=== PATIENT | male | born 1955 | race Caucasian/White ===

== ENCOUNTER 2017-10-19 15:20 | Inpatient (IN) | payer OTHER ==
[2017-10-19 15:57] LABS: Hemoglobin 16.2 g/dL (14.0-18.0); Mean Corpuscular Hemoglobin 31.3 pg (27.0-31.0); Mean Corpuscular Volume 91.8 fL (78.0-98.0); Mean Platelet Volume 7.4 fL (7.4-10.4); Platelet Count 197 thou/uL (130-400); RBC Distribution Width 12.4 % (11.5-14.5); Red Blood Cell (RBC) Count 5.19 mill/uL (4.70-6.10); White Blood Cell (WBC) Count 5.7 thou/uL (4.8-10.8)
[2017-10-19 16:05] LABS: Bilirubin Small (Negative); Blood, Urine Moderate (Negative); Clarity CLOUDY (Clear); Glucose, Urine (Dipstick) Negative (Negative); Leukocyte Negative (Negative); Nitrite Negative (Negative); Protein, Urine (Dipstick) 100 mg/dL (Neg-Trace); Specific Gravity, Urine 1.029 (1.002-1.036)
[2017-10-19 16:07] LABS: Bacteria/HPF None Seen HPF (None Seen)
[2017-10-19 16:08] LABS: Pathc Cast-AUWi Flag 3.92 (0-2.49); Yeast-AUWi Flag 86.7 (0-25.0)
[2017-10-19 16:17] LABS: ALT (SGPT) 18 U/L (8-55); AST (SGOT) 60 U/L (5-34); Albumin 3.9 g/dL (3.4-4.8); Alkaline Phosphatase 101 U/L (40-150); Anion Gap 14 mmol/L (10-20); BUN (Urea Nitrogen) 22 mg/dL (8.4-25.7); Bilirubin, Total 1.1 mg/dL (0.2-1.2); Calc. Creatinine Clearance 0 mL/min (70-130); Carbon Dioxide 22 mmol/L (23-31); Chloride 102 mmol/L (98-107); Estimated GFR-MDRD 65; Globulin 3.5 g/dL (2.4-3.5); Glucose 105 mg/dL (80-115); Potassium 3.7 mmol/L (3.5-5.1); Protein, Total 7.4 g/dL (5.8-8.1); Sodium 134 mmol/L (136-145)
[2017-10-19 16:21] LABS: Crystals/HPF 1+ AMORPH URATES HPF (Negative)
[2017-10-19 16:22] LABS: Hyaline Casts/LPF 0-3 HYALINE CAST LPF (0-3 Hyaline); Yeast-All Forms None Seen HPF (None Seen)
[2017-10-19 16:36] LABS: Band 24 % (5-11); Eosinophils 1 % (0-10); Lymphocytes 10 % (21-51); MDiff Complete? YES; Monocytes 10 % (0-10); Neutrophil 55 % (42-75); PLT Morphology Comment Appears Adequate; RBC Morphology Normal
[2017-10-19] MEDS ORDERED: Levofloxacin 500 mg/D5W 100 ml Premix Bag ONE (16:38)
--- NOTE | 2017-10-19 17:01 | RAD ---
CHEST ONE VIEW 10/19/17 HISTORY: Urinary tract infection, fever, chills and aching. COMPARISON: Radiograph chest 2009. FINDINGS: there is a peripheral left lower lobe air space opacity. Remainder of the lungs are clear. No pneumot horax. IMPRESSION: Left upper lobe peripheral air space opacity concerning for infection. Recommend followup after treat ment to document resolution. POS: [facility]
[2017-10-19] MEDS ORDERED: Cefepime 2 GM VIAL ONE (17:07)
[2017-10-19] MEDS ORDERED: Acetaminophen 325 MG TAB ONE (17:07)
[2017-10-19] MEDS ORDERED: Sodium Chloride 0.9% 100 ML ONE (17:07)
[2017-10-19] MEDS ORDERED: Ibuprofen 800 MG TAB PO PRN (18:30)
[2017-10-19] MEDS ORDERED: Acetaminophen 650 MG/20.3 ML UDCUP PO PRN (18:30)
--- NOTE | 2017-10-19 19:43 | RAD ---
CHEST ONE VIEW: 10/19/17 HISTORY: Lateral image. Fever and chills. COMPARISON: Radiograph same day. FINDINGS: Similar appearance to the left upper lobe air space opacity. IMPRESSION: Similar appearance left upper lobe air space opacity concerning for infection. Follow up recommended . POS: HOME
[2017-10-19] MEDS: cefTRIAXone\\ROCEPHIN 2 GM in Sodium Chloride 0.9% 100 ML IVPB SCH (20:12)
[2017-10-19] MEDS: Sodium Chloride 0.9% 1,000 ML IV SCH (20:15)
[2017-10-19 21:15] VITALS: BMI 31.4
[2017-10-19] MEDS: Albuterol Sulfate 1.25 MG/3 ML NEB NEB SCH (21:55)
--- NOTE | 2017-10-19 21:56 | CON ---
DATE OF CONSULTATION: 10/19/2017 PRIMARY CARE PHYSICIAN: Dr. Charbel Rider. HISTORY OF PRESENT ILLNESS: Mr. Price is a pleasant 62-year-old male well known to me with history of prostate cancer, pathologic T2c, Harris score 3+3, status post robotic-assisted radical prostatectomy in 08/2009. He has had no cancer recurrence. I recently saw Mr. Price for a routine followup visit on with no significant postvoid residual. He has had no significant post- prostatectomy incontinence, minimal impotence. There is no prior history of UTI or gross hematuria of concern. He continues to deny obstructive urinary symptoms. Since Tuesday, he has had fever, generalized malaise, upper neck pain of unclear etiology. He denies gross hematuria, dysuria, sensation of incomplete void. However, does relate that he has had urinary frequency with fluid consumption and this is his only urologic complaint. He presented to an outside emergency room [facility] on Tuesday. He had a CT of the abdomen and pelvis with IV contrast demonstrating no significant pathology of concern. No hydronephrosis. No kidney or ureteral stone. He was provided Ceftin for presumed UTI as urine dip demonstrated blood, however, nitrite and leukocyte negative, positive bilirubin and ketones. Culture was not obtained. His called our office today as there was a history of 104 fever. He took Tylenol earlier today and I encouraged the patient regarding emergency room assessment due to high fever of unknown origin. Temperature in the ER is 100.4 , otherwise vital signs are stable. He is resting with his at bedside. PAST MEDICAL HISTORY: Gout, arthritis, hyperlipidemia, rheumatic fever, prostate cancer, pathologic T2c and hemorrhoids. PAST SURGICAL HISTORY: Robotic-assisted radical prostatectomy in 01/2010. ALLERGIES: No known drug allergies. HOME MEDICATIONS: Include Cialis, naproxen p.r.n., Zyrtec. PHYSICAL EXAMINATION: VITAL SIGNS: Stable at 100.4, 96, 18, 114/75, 97% on room air. GENERAL: Patient does appear to be fatigued, facial flushing noted consistent with history of high fever. HEENT: Grossly unremarkable. HEART: Regular rate. LUNGS: Clear. ABDOMEN: Soft, no suprapubic tenderness. No CVA tenderness appreciated. GENITOURINARY: Circumcised phallus, meatus is grossly unremarkable. Testes are descended with no evidence of intratesticular mass or tenderness. EXTREMITIES: No cyanosis, clubbing or edema. Patient's genital area was formally prepped and draped in a 16 Indonesian catheter was passed without any resistance with no significant postvoid residual. Concentrated yellow urine return. PERTINENT LABS: Finalized a white count of 5, hemoglobin 16, platelet 197. His labs in [facility] a few days ago was grossly unremarkable. CT in [facility] dated Tuesday10/17/2017 with no evidence of acute pathology. Normal tract. Pertinent previous labs, PSA wolfgang in 08/2017, creatinine 1.2. CT in 06/2016 no evidence of abnormality. IMPRESSION/PLAN: 1. Mr. Price is a 62-year-old male well known to me for pathologic T2c, Sergo score 3+3, status post robotic prostatectomy 01/2010 with no evidence of cancer recurrence. Patient presents to the emergency room with high fever of 104 of unclear etiology. 2. Questionable urinary tract infection, UA is nonspecific. Recheck UA C&S is pending. I was able to pass a 16-Indonesian Stark catheter without significant issues with no significant postvoid residual of concern, thereby ruling out bladder neck contracture. I will leave an indwelling Stark catheter for now, as the patient will require aggressive IV fluids. Pending workup. Anticipate Stark catheter removal per my discretion in the next day or two. Medical admission warranted to work up fever of unknown origin. Recommend quinolones. Consideration for meropenem. I do not recommend cephalosporins as he has been on this with previous ER with no improvement of his fever.admission. [facility]
--- NOTE | 2017-10-20 00:36 | HP ---
DATE OF ADMISSION: 10/19/2017 HISTORY OF PRESENT ILLNESS: This is a 62-year-old white male who presents with fever of unknown orig in. The patient does have a history of prostate cancer, followed by Dr. Arshad. The patient wa s doing well until Tuesday morning, 4 days prior. The patient felt very fatigued, weak. He stayed in bed all day and later developed fever and chills. This persisted the following day and he went to [place] [facility], which they felt he may have a UTI. He was given IV fluids, IV antibiotics, and a prescr iption to go home on. He never complained of a cough or congestion. He simply complained of breathi ng heavily. He presented to [facility] today and on chest x-ray was found to have a large left up per lobe pneumonia. He was started on Levaquin and cefepime. CT scan of his abdomen and pelvis was performed, which was found to be unremarkable. The patient may have had some mild mesenteric edema a nd inflammation suggesting possible mesenteritis; however, his abdomen is relatively benign. PAST MEDICAL HISTORY: Gout, arthritis; hyperlipidemia; rheumatic fever; prostate cancer, 08/2009, fo llowed by Dr. Arshad. PAST SURGICAL HISTORY: Prostatectomy by Dr. Arshad, robotic, 01/2010. FAMILY HISTORY: Mother is . Paternal grandmother is 94 years of age. Maternal grandfather is 94. Maternal grandmother may have some unknown cancer. Otherwise, relatively benign family histo ry. SOCIAL HISTORY: He smokes occasional cigar and he drinks rarely. 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 MEDICATIONS: An occasional Aleve, Viagra, Zyrtec. Otherwise, no regular medications. ALLERGIES: None. REVIEW OF SYSTEMS: As above. PHYSICAL EXAMINATION: VITAL SIGNS: Stable, afebrile at this time. GENERAL: The patient is in no acute distress at this time. He is feeling much better. HEENT: Clear. NECK: Supple. HEART: Regular rate and rhythm. LUNGS: Relatively clear. No rales, rhonchi, or wheezing noted. ABDOMEN: Soft, nontender. EXTREMITIES: With no edema. LABORATORY AND X-RAY FINDINGS: CT scan of abdomen and pelvis with possible mesenteritis, otherwise n egative. Chest x-ray shows a left upper lobe pneumonia. White count 5.7, H&H 16 and 47, platelet 19 7. Sodium 134, potassium 3.7, creatinine 1.14, glucose 105. Liver function is normal. Urine, moder ate blood, 4-6 rbc's, 4-6 wbc's, 4-6 squamous cells present. ASSESSMENT: 1. Left upper lobe pneumonia, partially treated. 2. Dehydration. 3. Fever and chills. 4. History of prostate cancer in remission. PLAN: 1. IV Rocephin and Levaquin daily. 2. IV hydration. 3. Tylenol and Advil p.r.n. 4. Neb treatments q.8 hours. 5. Blood culture and urine culture. 6. We will continue to follow. If the patient continues to improve, hopefully will be discharged so on. We will order a chest x-ray PA and lateral.
[2017-10-20 04:27] LABS: ALT (SGPT) 15 U/L (8-55); AST (SGOT) 36 U/L (5-34); Albumin 3.2 g/dL (3.4-4.8); Alkaline Phosphatase 80 U/L (40-150); Anion Gap 14 mmol/L (10-20); BUN (Urea Nitrogen) 18 mg/dL (8.4-25.7); Bilirubin, Total 0.8 mg/dL (0.2-1.2); Calc. Creatinine Clearance 116 mL/min (70-130); Calcium 8.6 mg/dL (7.8-10.44); Carbon Dioxide 25 mmol/L (23-31); Chloride 103 mmol/L (98-107); Estimated GFR-MDRD 78; Glucose 104 mg/dL (80-115); Potassium 3.6 mmol/L (3.5-5.1); Protein, Total 6.2 g/dL (5.8-8.1); Sodium 138 mmol/L (136-145)
[2017-10-20 04:40] LABS: Band 24 % (5-11); Hemoglobin 14.3 g/dL (14.0-18.0); Lymphocytes 14 % (21-51); MDiff Complete? YES; Mean Corpuscular HGB CONC 35.2 g/dL (32.0-36.0); Mean Corpuscular Hemoglobin 32.8 pg (27.0-31.0); Mean Corpuscular Volume 93.2 fL (78.0-98.0); Mean Platelet Volume 7.1 fL (7.4-10.4); Monocytes 8 % (0-10); Neutrophil 54 % (42-75); PLT Morphology Comment Appears Adequate; Platelet Count 150 thou/uL (130-400); RBC Distribution Width 12.6 % (11.5-14.5); Red Blood Cell (RBC) Count 4.36 mill/uL (4.70-6.10); White Blood Cell (WBC) Count 5.1 thou/uL (4.8-10.8)
[2017-10-20] MEDS: Sodium Chloride 0.9% 1,000 ML IV SCH ×4 (04:43→20:43)
[2017-10-20] MEDS: Acetaminophen 325 MG TAB PO PRN ×3 (04:43→17:10)
--- NOTE | 2017-10-20 07:43 | PRG ---
DATE OF SERVICE: 10/20/2017 SUBJECTIVE: The patient feeling better. PHYSICAL EXAMINATION: VITAL SIGNS: T-max of 100.2, T-current 99.7, 83, 18, 96, 141/91. I's and O's 2130 in, 850 mL of concentrated yellow urine out. ABDOMEN: Soft, nontender, nondistended. GENITOURINARY: Stark catheter concentrated yellow urine with no evidence of hematuria. LABORATORY DATA: White blood cell count 5.1, hemoglobin 14, platelet 150, 24 bandemia. BMP profile with normal renal function. Influenza is negative. Urine culture pending. IMPRESSION AND PLAN: 1. Mr. Price is a 62-year-old male well known to me with history of prostate cancer, status post robotic prostatectomy in 2009 with no evidence of cancer recurrence. 2. Fever, most likely pulmonary etiology. Continue antibiotic per Dr. Tay with Rocephin and Levaquin. will discontinue Stark catheter as he has had no significant postvoid residual , follow urine culture. He may be discharged when medically stable. [facility]
[2017-10-20] MEDS: Albuterol Sulfate 1.25 MG/3 ML NEB NEB SCH ×3 (08:11→22:17)
--- NOTE | 2017-10-20 09:07 | PRG ---
DATE OF SERVICE: 10/20/2017 SUBJECTIVE: The patient is feeling much better than yesterday. Still with minimal cough. Receiving breathing treatments. OBJECTIVE: VITAL SIGNS: Temperature 99.7, pulse 80, respirations 16, pulse ox 99, blood pressure 141/91. HEART: Regular rate and rhythm. LUNGS: Still clear. ABDOMEN: Soft. LABORATORY: White count 5.1, H&H 14 and 40. Sodium 138, potassium 3.6. Liver functions normal. ASSESSMENT: 1. Left upper lobe pneumonia, partially treated. 2. Dehydration. 3. Fever and chills. 4. History of prostate cancer in remission. PLAN: 1. Continue IV Rocephin and Levaquin. 2. Continue IV hydration. 3. Continue neb treatments. 4. Hopefully can discharge tomorrow. The patient will need a repeat chest x-ray until resolution of the left upper lobe pneumonia.
[2017-10-20] MEDS: cefTRIAXone\\ROCEPHIN 2 GM in Sodium Chloride 0.9% 100 ML IVPB SCH (20:37)
[2017-10-21] MEDS: Acetaminophen 325 MG TAB PO PRN (01:21)
[2017-10-21] MEDS: Sodium Chloride 0.9% 1,000 ML IV SCH ×2 (04:41→14:37)
[2017-10-21 04:58] LABS: Anion Gap 10 mmol/L (10-20); BUN (Urea Nitrogen) 10 mg/dL (8.4-25.7); Calc. Creatinine Clearance 118 mL/min (70-130); Calcium 8.3 mg/dL (7.8-10.44); Carbon Dioxide 26 mmol/L (23-31); Chloride 106 mmol/L (98-107); Estimated GFR-MDRD 79; Glucose 105 mg/dL (80-115); Potassium 3.8 mmol/L (3.5-5.1); Sodium 138 mmol/L (136-145)
[2017-10-21 05:11] LABS: Band 19 % (5-11); Eosinophils 1 % (0-10); Hemoglobin 12.8 g/dL (14.0-18.0); Lymphocytes 27 % (21-51); MDiff Complete? YES; Mean Corpuscular HGB CONC 35.2 g/dL (32.0-36.0); Mean Corpuscular Hemoglobin 32.8 pg (27.0-31.0); Mean Corpuscular Volume 93.3 fL (78.0-98.0); Mean Platelet Volume 7.2 fL (7.4-10.4); Monocytes 14 % (0-10); Neutrophil 38 % (42-75); PLT Morphology Comment Appears Adequate; Platelet Count 161 thou/uL (130-400); RBC Distribution Width 12.5 % (11.5-14.5); White Blood Cell (WBC) Count 4.5 thou/uL (4.8-10.8)
[2017-10-21] MEDS: Albuterol Sulfate 1.25 MG/3 ML NEB NEB SCH ×2 (06:08→12:22)
[2017-10-21 07:54] VITALS: BP 118/71; TEMP 99.1
--- NOTE | 2017-10-21 09:00 | CON ---
DATE OF CONSULTATION: 10/20/2017 Alvaro Price is a very pleasant 62-year-old male who developed fever and rigors at home. He had been seen recently and told he might have a urinary tract infection. He has been evaluated by Urology. He subsequently was admitted after having a chest radiograph that showed an infiltrate in his left upper lobe. He says he is feeling better. PAST MEDICAL HISTORY: Remarkable for: 1. Gout. 2. Liver disorder. 3. Degenerative arthritis. 4. History of rheumatic fever when he was young. 5. History of prostate cancer with prostatectomy in 2009. SOCIAL HISTORY: He rarely smokes cigars, he never smoked cigarettes. He drinks rarely. He does not use drugs. 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 FAMILY HISTORY: Positive for longevity in a grandmother and maternal grandfather. There is no history of lung disease. Prior to admission he was on Aleve, Viagra , and Zyrtec. ALLERGIES: No known drug allergies. REVIEW OF SYSTEMS: Ten-point review of systems completed; otherwise negative. PHYSICAL EXAMINATION: GENERAL: He is in no distress. Temperature maximum since here has been 101.7. HEENT: Pupils are equal. Sclerae is anicteric. NECK: Supple, no lymphadenopathy. LUNGS: Clear. HEART: Regular rhythm, no S3. ABDOMEN: Soft and nontender. EXTREMITIES: Without clubbing, cyanosis, or edema. NEUROLOGIC: Grossly nonfocal. LABORATORY DATA: White count 5.1, hemoglobin 14.3, platelets 150. Electrolytes are normal. AST is 36, ALT is 15, albumin was 3.2 today, 3.9 on admission. Chest radiograph reviewed by me shows lobular infiltrate in his left upper lobe. IMPRESSION: Pneumonia, community acquired. He continues to have fever. His outpatient drug apparently was Ceftin. He is currently on Rocephin and Levaquin, which I would think would be adequate antimicrobial coverage. I will continue to follow him for now, hoping that he gradually defervesced. I will be happy to follow with the other physicians caring for him. A 70-minute consult greater than 50% of the time spent on unit coordinating care. HORACIO
--- NOTE | 2017-10-21 09:01 | PRG ---
DATE OF SERVICE: 10/21/2017 SUBJECTIVE: The patient feels better, did have some rigors last night as he had a T-max of 101, currently feels well. Overall, he states that he feels significantly better clinically since he was admitted. Otherwise, his vital signs are stable. Urine output 3900 as he is on high IV fluid resuscitation at 150 mL an hour. He has no problems urinating. Denies dysuria or gross hematuria. PHYSICAL EXAMINATION: ABDOMEN: Soft, nontender, nondistended. No suprapubic tenderness. EXTREMITIES: No cyanosis, clubbing or edema. LABORATORY DATA: White count 4.5, hemoglobin 12, platelet 161. Improvement of bandemia from 24 to 19, creatinine is stable. Blood culture, urine culture negative. IMPRESSION AND PLAN: Mr. Price is a 62-year-old male known to me for history of prostate cancer, status post prostatectomy in 2009 with no evidence of cancer recurrence. He has no significant incontinence, no evidence of bladder neck contracture. Urine culture negative. Currently, admitted with fever and pneumonia. Discharge when medically stable, as he has spiked a fever last night , anticipate he will be in the hospital over the weekend. He may be discharged when medically stable, will sign off. He has routine followup appointment with me with labs. HORACIO
--- NOTE | 2017-10-21 09:01 | DIS ---
DATE OF ADMISSION: 10/19/2017 DATE OF DISCHARGE: 10/21/2017 DISCHARGE DIAGNOSES: 1. Left upper lobe pneumonia. 2. Dehydration. 3. Fever and chills. 4. History of prostate cancer in remission. RECOMMENDATIONS: 1. Strongly enforce the patient that we need to repeat chest x-ray in 3-4 weeks. 2. Follow up 1 week. DISCHARGE MEDICATIONS: Levaquin 750 one p.o. daily #10, and albuterol metered dose inhaler 2 puffs q .4 hours p.r.n. BRIEF HISTORY: This is a 62-year-old white male who presents with fever. He has a history of prosta te cancer in remission, followed by Dr. Arshad. He was doing well until 4 days prior to admissi on when he was becoming very weak and fatigued. He stayed in bed and his fever and chills became wor se. He then presented to the ER where he was given IV fluids, antibiotics for UTI. He continued to feel bad and finally presented to the ER. HOSPITAL COURSE: The patient was admitted with a left upper lobe pneumonia noted on chest x-ray. He was started on Levaquin and cefepime. He has done very well. He did have a temperature last night of 101. However, he is feeling much better than admission and strongly wanted to go home. He is wal kobi in the hallways. We will complete todays of IV antibiotics and possibly discharge this afternoo n.
[2017-10-21] MEDS ORDERED: Albuterol Sulfate 1.25 MG/3 ML NEB NEB PRN (16:30)
== END 2017-10-21 17:50 | disposition home or self-care (01) | DRG 195 ==
LOC: ERS 15:20 → T4-A 19:28
PROVIDERS: ADMIT Family Medicine; ATTEND Family Medicine
DX: J18.9 Pneumonia, unspecified organism (principal); Z72.0 Tobacco use; F41.9 Anxiety disorder, unspecified; E78.5 Hyperlipidemia, unspecified; Z85.46 Personal history of malignant neoplasm of prostate; E86.0 Dehydration; M10.9 Gout, unspecified; K76.9 Liver disease, unspecified; M19.90 Unspecified osteoarthritis, unspecified site
CPT/HCPCS: 36415; 36416; 71045; 80048; 80053; 81001; 81015; 83605; 85025; 87040; 87086; 87804; 94640; J0692; J0696; J1956; J7050

== ENCOUNTER 2017-11-09 09:19 | Outpatient (CLI) | payer OTHER | END 2017-11-09 09:20 | disposition home or self-care (01) | LOC: BICRAD 09:19 | PROVIDERS: ATTEND Family Medicine | DX: J18.9 Pneumonia, unspecified organism (principal) | CPT/HCPCS: 71046 ==

== ENCOUNTER 2018-11-05 11:30 | Inpatient (IN) | payer OTHER ==
[2018-11-05 13:19] VITALS: BMI 31.1
[2018-11-05 13:39] LABS: Troponin I 1.784 ng/mL (< 0.028)
--- NOTE | 2018-11-05 14:34 | HP ---
HISTORY OF PRESENT ILLNESS: This is a 63-year-old white male, who presents with chest pain. The patient has history of hyperlipidemia and prostate cancer, who was doing relatively well until yesterday morning. He had a bout of substernal chest pain, radiating somewhat to the back bilaterally. No associated nausea, vomiting, or shortness of breath or diaphoresis. This persisted throughout the day, off and on. This morning about 3:00 a.m., awoke with severe chest pain, which was approximately 8/10, which dropped to 3/10. He was seen at [facility]. He was evaluated and was found to have a slightly elevated troponin and was referred here for an NSTEMI evaluation. His blood pressure was also noted to be elevated. PAST MEDICAL HISTORY: Gout, arthritis, hyperlipidemia, rheumatic fever as a child, and prostate cancer. PAST SURGICAL HISTORY: Include prostatectomy, robotic. FAMILY HISTORY: Father at 84 from Parkinson's. Mother at 92. Paternal grandfather at 78. Paternal grandmother at 94. SOCIAL HISTORY: He does smoke cigars occasionally. Alcohol occasionally. 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 MEDICATIONS: None. ALLERGIES: NONE. REVIEW OF SYSTEMS: As above. PHYSICAL EXAMINATION: VITAL SIGNS: Blood pressure at this time 150/70, initially was 189/114. GENERAL: No acute distress at this time. HEENT: Clear. NECK: Supple. HEART: Regular rate and rhythm without murmur. LUNGS: Clear. ABDOMEN: Soft and nontender. EXTREMITIES: No edema. LABORATORY DATA: Labs being reported from [facility], troponin was noted to be 0.83, we will repeat. BNP was 186, and D-dimer negative. ASSESSMENT: 1. Chest pain, rule out myocardial infarction. 2. Non-ST elevation myocardial infarction. 3. Hyperlipidemia. 4. Cigar smoker. 5. Uncontrolled blood pressure. PLAN: 1. Began aspirin. 2. Lovenox. 3. Echo. 4. Cardiolite stress test. 5. Serial troponin levels. 6. Consult Cardiology. Job ID: [id number]
--- NOTE | 2018-11-05 14:54 | CON ---
DATE OF CONSULTATION: 11/05/2018 REASON FOR CONSULTATION: Non-STEMI. HISTORY OF PRESENT ILLNESS: Mr. Price is a pleasant 63-year-old white gentleman, who comes to the hospital for chest pain. He actually started having pain yesterday morning. He woke up with a midsternal chest tightness that got better throughout the day. That evening, he went to bed and he had a hard time sleeping because he kept having the pain. He woke up this morning and the pain was at its worse, so he decided to go to the ER. He actually went to the [facility], where he was evaluated and the first troponin was positive, so he was transferred over to the hospital for further evaluation and care. Currently, he is chest pain free. He has never had any heart problems in the past. He has never had to see a gold cutter for anything. PAST MEDICAL HISTORY: 1. Gouty arthritis. 2. Hyperlipidemia. 3. Rheumatic fever as a child. 4. Prostate cancer, status post prostatectomy in 2009, followed by Dr. Arshad. PAST SURGICAL HISTORY: Robotic prostatectomy [place] [address] Arshad. SOCIAL HISTORY: Occasional cigar. Social alcohol use only. Quit smoking 40 years ago. No drug use. 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 . No kids. OUTPATIENT MEDICATIONS: Include; 1. Naproxen p.r.n. for pain. 2. Cetirizine p.r.n. allergies. ALLERGIES: NO KNOWN DRUG ALLERGIES. REVIEW OF SYSTEMS: A 12-point review of systems was done and was all negative unless stated in the history of present illness. FAMILY HISTORY: No early coronary artery disease. PHYSICAL EXAMINATION: VITAL SIGNS: Temperature 98.8, pulse 73, respiratory rate 18, saturating 98% on 2 L, and blood pressure 141/92. GENERAL: Awake, alert, and oriented x3, in no distress. HEENT: Normocephalic, atraumatic. NECK: Supple. No JVD. LUNGS: Clear. CARDIOVASCULAR: S1 and S2. No S3 or S4. No murmurs. ABDOMEN: Soft. Positive bowel sounds. EXTREMITIES: No edema. SKIN: Warm and dry. DIAGNOSTIC DATA: Laboratory work from the [facility], this is on i-STAT, his creatinine was 1.1, BUN of 14, calcium of 9.3, glucose of 93, potassium of 4.4, and sodium of 144. Total bilirubin was 1.0, AST, ALT, and alkaline phosphatase are all normal, and albumin of 3.9. Hemoglobin of 17.1, white count of 10.8. EKG was reviewed, T-wave abnormality in anterior leads, otherwise sinus bradycardia. No S3. Troponin here was 1.78. ASSESSMENT: Non-ST elevation myocardial infarction. PLAN: 1. Symptoms are consistent with a myocardial infarction that started yesterday. Currently, he is pain free. We will plan on doing a heart catheterization tomorrow morning. We spoke at length with risks and benefits of the procedure. Risks included, but not limited to stroke, ID, , bleeding, need for blood transfusion, limb loss, organ loss, need for emergent bypass surgery. He understands, verbalized understanding of this and agrees to proceed. 2. We will continue full anticoagulation at this time and no more Lovenox after midnight for procedure tomorrow morning. We spoke about drug-eluting versus bare-metal stents. He states that he will take any medication we gave him, so we will do drug-eluting stents if needed, right radial access. Thank you for letting us to participate in the care of your patient. We will follow. Job ID: [id number]
--- NOTE | 2018-11-05 15:45 | ULT ---
US Gallbladder RUQ: 11/05/2018 1:12 PM CLINICAL HISTORY: Abdominal pain. STUDY: Limited right upper quadrant ultrasound of abdomen. COMPARISON: None. FINDINGS: Liver: Size: Normal. Echogenicity: Normal. Contour: Smooth. Mass: None. Bile ducts: No intrahepatic or extrahepatic biliary dilatation. Common bile duct was not seen. Gallbladder: Normal. Pancreas: Not well visualized secondary to bowel gas. Right kidney: No pelvicalyceal dilatation. Right kidney measuring 10.7 cm in length. IMPRESSION: Unremarkable limited exam.
[2018-11-05 16:30] LABS: Troponin I 2.463 ng/mL (< 0.028)
[2018-11-05] MEDS: Nitroglycerin 2% Ointment 1 INCH/1 GM Packet TOP SCH ×2 (16:57→23:02)
[2018-11-05] MEDS ORDERED: Communication Order-Pharmacy FS SCH (17:45)
[2018-11-05 18:16] LABS: #Basophils 0.1 thou/uL (0.0-0.2); #Eosinphils 0.1 thou/uL (0.0-0.7); #Lymphocytes 2.1 thou/uL (1.20-3.40); #Monocytes 0.9 thou/uL (0.11-0.59); #Neutrophils 5.2 thou/uL (1.40-6.50); %Basophils 0.6 % (0.0-1.0); %Eosinophils 1.5 % (0.0-10.0); %Monocytes 11.1 % (0.0-10.0); %Neutrophils 61.8 % (42.0-75.0); Hemoglobin 16.9 g/dL (14.0-18.0); Mean Corpuscular HGB CONC 34.6 g/dL (32.0-36.0); Mean Corpuscular Hemoglobin 32.4 pg (27.0-31.0); Mean Corpuscular Volume 93.7 fL (78.0-98.0); Mean Platelet Volume 8.2 fL (7.4-10.4); Platelet Count 192 thou/uL (130-400); RBC Distribution Width 12.3 % (11.5-14.5); Red Blood Cell (RBC) Count 5.21 mill/uL (4.70-6.10); White Blood Cell (WBC) Count 8.5 thou/uL (4.8-10.8)
[2018-11-05 18:36] LABS: ALT (SGPT) 8 U/L (8-55); AST (SGOT) 29 U/L (5-34); Albumin 4.3 g/dL (3.4-4.8); Alkaline Phosphatase 66 U/L (40-150); Anion Gap 11 mmol/L (10-20); BUN (Urea Nitrogen) 15 mg/dL (8.4-25.7); Bilirubin, Total 0.9 mg/dL (0.2-1.2); Calc. Creatinine Clearance 100 mL/min (70-130); Calcium 9.7 mg/dL (7.8-10.44); Carbon Dioxide 31 mmol/L (23-31); Chloride 103 mmol/L (98-107); Estimated GFR-MDRD 66; Globulin 2.7 g/dL (2.4-3.5); Glucose 87 mg/dL (80-115); Sodium 141 mmol/L (136-145)
[2018-11-05] MEDS: Metoprolol Tartrate 25 MG TAB PO SCH (20:48)
[2018-11-05] MEDS ORDERED: Enoxaparin Sodium 100 MG/ML SYRINGE SC SCH (21:00)
[2018-11-06 05:37] LABS: Cardiac Risk 5.6 (Less than 4.5)
[2018-11-06] MEDS: Metoprolol Tartrate 25 MG TAB PO SCH (06:17)
[2018-11-06] MEDS: Sodium Chloride 0.9% 1,000 ML IV SCH ×2 (06:18→16:46)
[2018-11-06] MEDS: Nitroglycerin 2% Ointment 1 INCH/1 GM Packet TOP SCH ×2 (06:37→16:47)
[2018-11-06] MEDS ORDERED: Aspirin 325 mg Enteric Coated Tablet PO SCH (09:00)
[2018-11-06] MEDS ORDERED: Enoxaparin Sodium 40 MG/0.4 ML SYRINGE SC SCH (09:00)
[2018-11-06] MEDS ORDERED: Lidocaine 1% (PF) 30 ML VIAL ONE (09:14)
[2018-11-06] MEDS ORDERED: Heparin 10,000 UNITS/1 ML VIAL ONE (09:21)
[2018-11-06] MEDS ORDERED: Nitroglycerin 100MG/250ML BOT 250 ML ONE (09:21)
[2018-11-06] MEDS ORDERED: Verapamil 5 MG/2 ML VIAL ONE (09:21)
[2018-11-06] MEDS ORDERED: Fentanyl 100 MCG/2 ML VIAL ONE ×2 (10:08→16:00)
[2018-11-06] MEDS ORDERED: Midazolam HCl 2 mg/2 ml Vial ONE (10:08)
[2018-11-06] MEDS ORDERED: Sodium Chloride 0.9% 200 ML IV PRN (10:36)
[2018-11-06] MEDS ORDERED: Acetaminophen/Codeine 30-300mg Tablet PO PRN (10:36)
[2018-11-06] MEDS ORDERED: Nitroglycerin 0.4 MG TAB (25 Tab Bottle) SL PRN (10:36)
[2018-11-06] MEDS ORDERED: Sodium Chloride 0.9% 1,000 ML IV SCH (10:38)
[2018-11-06] MEDS ORDERED: Albumin 5% 500 ML ONE (10:48)
[2018-11-06] MEDS ORDERED: Heparin 10,000 UNITS/1 ML VIAL 30,000 UNITS in Sodium Chloride 0.9% 1,000 ML FS SCH (11:00)
[2018-11-06] MEDS ORDERED: Nitroglycerin 50 MG/250 ML BOT ONE (11:10)
[2018-11-06] MEDS ORDERED: Potassium Chloride 60 MEQ/30 ML VIAL ONE (11:10)
[2018-11-06] MEDS ORDERED: Heparin 30,000 units/30 ml VIAL ONE (11:10)
[2018-11-06] MEDS ORDERED: Sodium Bicarb 50 MEQ/50 ML VIAL ONE (11:10)
[2018-11-06] MEDS ORDERED: Thrombin 5000 UNITS/5 ML VIAL ONE (11:10)
[2018-11-06] MEDS ORDERED: Magnesium 5 GM/10 ML VIAL ONE (11:10)
[2018-11-06] MEDS ORDERED: Heparin 5,000 UNITS/ML VIAL ONE (11:10)
[2018-11-06] MEDS ORDERED: Protamine Sulfate 250 MG/25 ML VIAL ONE (11:10)
[2018-11-06] MEDS ORDERED: Mannitol 12.5 GM/50 ML ONE (11:10)
[2018-11-06] MEDS ORDERED: Vecuronium 10 MG VIAL ONE ×2 (11:10→11:22)
[2018-11-06] MEDS ORDERED: Cardioplegic Soln 1,000 ML BAG ONE (11:10)
[2018-11-06] MEDS ORDERED: Calcium Chloride 1 GM/10 ML Abboject SYRINGE ONE (11:10)
[2018-11-06] MEDS ORDERED: PROPOFOL 200 MG/20 ML VIAL ONE (11:10)
[2018-11-06] MEDS ORDERED: Lidocaine 2% PF 100 mg/5 ml Syringe ONE (11:10)
[2018-11-06] MEDS ORDERED: Fentanyl 250 MCG/5 ML VIAL ONE (11:21)
[2018-11-06] MEDS ORDERED: Midazolam HCl 5 mg/5 ml Vial ONE (11:21)
[2018-11-06] MEDS ORDERED: Dexmedetomidine 200 MCG/2 ML VIAL ONE (11:22)
[2018-11-06] MEDS ORDERED: Norepinephrine 4 MG/4 ML VIAL ONE ×2 (11:22→12:15)
--- NOTE | 2018-11-06 11:47 | PRG ---
DATE OF SERVICE: 11/06/2018 SUBJECTIVE: The patient remains pain free. No nausea, vomiting, or fever. OBJECTIVE: VITAL SIGNS: Temperature 98.5, pulse 55, respirations 15, pulse ox 96%, and blood pressure 121/73. HEART: Regular rate and rhythm. LUNGS: Clear. ABDOMEN: Soft. EXTREMITIES: With no edema. LABORATORY DATA: Cholesterol 208, triglycerides 217. Troponin 1.7 to 2.4. ASSESSMENT: 1. Non-ST elevation myocardial infarction with increasing troponin levels. 2. Hyperlipidemia. 3. Cigar smoker. 4. Uncontrolled blood pressure. PLAN: 1. Cardiac cath this a.m. 2. Lovenox. 3. Aspirin. 4. Begin statin. Job ID: [id number]
--- NOTE | 2018-11-06 11:51 | CON ---
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 Cardiac echo demonstrated some moderate anterior wall hypokinesis with moderate aortic insufficiency. He underwent catheterization today demonstrating 2 severe LAD lesions as well as a stenosis and a high first diagonal and a mid PDA. The circumflex had a separate ostium, did not appear to have significant disease, and the main right coronary artery was free of disease. PAST MEDICAL HISTORY: Includes dyslipidemia. He has had some mild hypertension here. PAST SURGICAL HISTORY: Includes a robotic prostatectomy in 2009. Additional medical history includes pneumonia last year. MEDICATIONS: At home included Naprosyn and Zyrtec. PHYSICAL EXAMINATION: VITAL SIGNS: On examination, his blood pressure is 118/72, his heart rate is 60 and that is with the addition of a low-dose metoprolol. NECK: No carotid bruits. LUNGS: Clear to auscultation. CARDIAC: I do not appreciate any murmurs. Rhythm is regular. ABDOMEN: Soft and nontender. EXTREMITIES: He has palpable femoral and pedal pulses bilaterally with no peripheral edema. He has a compression device on his right radial artery. PLAN: At this time is for bypass grafting to the LAD, possibly high diagonal and possibly PDA, depending on the quality of these vessels. Informed consent has been obtained. Job ID: [id number]
[2018-11-06] MEDS ORDERED: Iopamidol 370 76% 100 ML VIAL ONE (14:17)
[2018-11-06] MEDS ORDERED: Mag-Al 1200 mg/1200 mg/30 ML UDCUP PO PRN (15:21)
[2018-11-06] MEDS ORDERED: Bisacodyl 5 MG TAB PO PRN (15:21)
[2018-11-06] MEDS ORDERED: Promethazine HCl 25 MG/ML VIAL IM PRN (15:21)
[2018-11-06] MEDS ORDERED: Hetastarch 6% 500 ML 500 ML IVPB PRN (15:21)
[2018-11-06] MEDS ORDERED: Ondansetron PF 4 MG/2 ML Vial IVP PRN (15:21)
[2018-11-06] MEDS ORDERED: Fentanyl 100 MCG/2 ML VIAL SLOW IVP PRN (15:21)
[2018-11-06] MEDS ORDERED: DOPamine 400 MG/D5W 250 ML 250 ML IVPB PRN (15:21)
[2018-11-06] MEDS ORDERED: Acetaminophen 325 MG TAB PO PRN (15:21)
[2018-11-06] MEDS ORDERED: Nitroglycerin 50 MG/250 ML BOT 250 ML IVPB PRN (15:21)
[2018-11-06] MEDS ORDERED: Norepinephrine 8 MG/0.9% NS 250 ML IVPB PRN (15:21)
[2018-11-06] MEDS ORDERED: niCARdipine 25 MG in Sodium Chloride 0.9% 250 ML 240 ML IVPB PRN (15:21)
[2018-11-06] MEDS ORDERED: hydrALAZINE 20 MG/ML VIAL SLOW IVP PRN (15:21)
[2018-11-06] MEDS ORDERED: Guaifenesin DM 100-10/5 ML UDCUP PO PRN (15:21)
[2018-11-06] MEDS ORDERED: Post-Op Insulin Drip Protocol IVPB ONE (15:21)
[2018-11-06] MEDS ORDERED: Potassium Chloride 20 MEQ/100 ML PREMIX BAG IVPB PRN (15:21)
[2018-11-06] MEDS ORDERED: Bisacodyl 10 MG SUPP PR PRN (15:21)
[2018-11-06] MEDS ORDERED: Morphine 2 MG/ML SYRINGE SLOW IVP PRN (15:21)
[2018-11-06 15:51] LABS: Actual Bicarbonate (HCO3a) 22.7 mEq/L (22-28); Base Excess (BEa) -2.4 mEq/L (-2.0 to +3.0); Carboxyhemoglobin (COHb) 1.2 gm% (0.0-3.0); Hemoglobin (Hb) 15.3 g/dL (14.0-18.0); O2 Tension (PaO2) 103.3 mmHg (> 80.0); Potassium - ABG Lab 4.13 mmol/L (3.70-5.30); Puncture Site ART LINE; pH, Arterial 7.37 (7.35-7.45)
[2018-11-06 15:56] LABS: #Basophils 0.1 thou/uL (0.0-0.2); #Eosinphils 0.1 thou/uL (0.0-0.7); #Lymphocytes 1.3 thou/uL (1.20-3.40); #Monocytes 1.1 thou/uL (0.11-0.59); #Neutrophils 13.8 thou/uL (1.40-6.50); %Basophils 0.4 % (0.0-1.0); %Eosinophils 0.4 % (0.0-10.0); %Lymphocytes 8.1 % (21.0-51.0); %Monocytes 6.4 % (0.0-10.0); %Neutrophils 84.7 % (42.0-75.0); Hemoglobin 15.3 g/dL (14.0-18.0); Mean Corpuscular HGB CONC 35.3 g/dL (32.0-36.0); Mean Corpuscular Hemoglobin 32.7 pg (27.0-31.0); Mean Corpuscular Volume 92.6 fL (78.0-98.0); Mean Platelet Volume 8.3 fL (7.4-10.4); Platelet Count 145 thou/uL (130-400); RBC Distribution Width 12.1 % (11.5-14.5); Red Blood Cell (RBC) Count 4.68 mill/uL (4.70-6.10); White Blood Cell (WBC) Count 16.3 thou/uL (4.8-10.8)
[2018-11-06 16:01] LABS: INR-International Normal Ratio 1.2; PTT 30.3 SEC (22.9-36.1); Prothrombin Time 15.4 SEC (12.0-14.7)
[2018-11-06] MEDS ORDERED: Dextrose 5% in Water 1,000 ML IV PRN (16:14)
[2018-11-06] MEDS ORDERED: Dextrose 50% Abboject 50 ML SYRINGE SLOW IVP PRN (16:14)
[2018-11-06] MEDS ORDERED: HUMULIN R 100 UNITS in Sodium Chloride 0.9% 100 ML IVPB SCH (16:14)
[2018-11-06] MEDS ORDERED: Insulin Regular 300 UNITS/3 ML VIAL SC PRN (16:14)
[2018-11-06] MEDS ORDERED: Magnesium 2 GM/50 ML 2 GM in Premix Bag 1 BAG IVPB SCH (16:15)
[2018-11-06] MEDS: Fentanyl 100 MCG/2 ML VIAL SLOW IVP PRN ×3 (16:15→21:09)
--- NOTE | 2018-11-06 16:18 | RAD ---
EXAM: CHEST ONE VIEW HISTORY: Post open heart surgery. COMPARISON: 11/09/2017 FINDINGS: Endotracheal tube is noted in place. The exact position of the tip in relation to the bernie is diffi cult to determine, but the tip is probably at or just above the level of the bernie. A right subclavian central venous catheter is noted in place with tip overlying the cavoatrial junction. Inte rval postsurgical changes related to CABG are noted. Mediastinal drains and left-sided thoracostomy tube are noted in place. The cardiac silhouette is magnified by projection and patient rotation to th e left. There is mild atelectasis present at each lung base. No pneumothorax or definite pleural effusion is seen. However, there is suboptimal evaluation of the lateral left lung base related to pa tient rotation and overlying soft tissue density. IMPRESSION: Interval postsurgical changes related to CABG with lines and tubes in place as noted above. Bibasilar atelectasis is present, but no pneumothorax is seen.
[2018-11-06] MEDS: Lactated Ringer's 1,000 ML IV SCH (16:29)
[2018-11-06 16:37] LABS: Anion Gap 10 mmol/L (10-20); BUN (Urea Nitrogen) 15 mg/dL (8.4-25.7); Calc. Creatinine Clearance 140 mL/min (70-130); Calcium 8.1 mg/dL (7.8-10.44); Carbon Dioxide 24 mmol/L (23-31); Chloride 108 mmol/L (98-107); Estimated GFR-MDRD Greater than 90; Glucose 114 mg/dL (80-115); Potassium 4.1 mmol/L (3.5-5.1); Sodium 138 mmol/L (136-145)
--- NOTE | 2018-11-06 17:05 | EKG ---
Test Reason : Blood Pressure : / mmHG Vent. Rate : 058 BPM Atrial Rate : 058 BPM P-R Int : 142 ms QRS Dur : 102 ms QT Int : 460 ms P-R-T Axes : 034 -17 068 degrees QTc Int : 451 ms Sinus bradycardia with sinus arrhythmia T wave abnormality, consider anterior ischemia Abnormal ECG When compared with ECG of 07-SEP-1996 12:58, Questionable change in QRS duration Confirmed by JESSE REYES, SPresley ([id number]) on 11/06/2018 5:04:56 PM Referred By: CARL Confirmed By:DR. Lorene MOLINA MD
[2018-11-06] MEDS: Ketorolac Tromethamine 30 MG/ML VIAL IVP SCH (17:15)
[2018-11-06 19:39] LABS: Actual Bicarbonate (HCO3a) 20.2 mEq/L (22-28); CO2 Tension 38.2 mmHg (35.0-45.0); Calcium, Ionized 1.11 mmol/L (1.12-1.30); Hemoglobin (Hb) 14.4 g/dL (14.0-18.0); Potassium - ABG Lab 4.31 mmol/L (3.70-5.30); pH, Arterial 7.34 (7.35-7.45)
[2018-11-06 19:53] LABS: Puncture Site line
[2018-11-06] MEDS ORDERED: Famotidine/PF 20 mg/2ml Vial SLOW IVP SCH (21:00)
[2018-11-06] MEDS ORDERED: Atorvastatin Calcium 10 MG TAB PO SCH (21:00)
[2018-11-06] MEDS: CEFAZOLIN 2 GM in Sodium Chloride 0.9% 100 ML IVPB SCH (21:03)
[2018-11-06 21:46] LABS: Hemoglobin 13.8 g/dL (14.0-18.0)
[2018-11-06 22:00] LABS: Potassium 4.2 mmol/L (3.5-5.1)
[2018-11-07] MEDS: Ketorolac Tromethamine 30 MG/ML VIAL IVP SCH ×2 (00:13→05:26)
[2018-11-07] MEDS: HYDROcodone/Acetaminophen 5/325 mg Tablet PO PRN ×5 (00:13→18:24)
[2018-11-07] MEDS: Lactated Ringer's 1,000 ML IV SCH (00:14)
[2018-11-07] MEDS: Fentanyl 100 MCG/2 ML VIAL SLOW IVP PRN (02:30)
[2018-11-07] MEDS: CEFAZOLIN 2 GM in Sodium Chloride 0.9% 100 ML IVPB SCH ×2 (05:25→14:04)
[2018-11-07 05:36] LABS: #Lymphocytes 0.6 thou/uL (1.20-3.40); #Monocytes 1.3 thou/uL (0.11-0.59); #Neutrophils 9.3 thou/uL (1.40-6.50); %Eosinophils 0.1 % (0.0-10.0); %Lymphocytes 5.5 % (21.0-51.0); %Monocytes 11.5 % (0.0-10.0); %Neutrophils 82.9 % (42.0-75.0); Mean Corpuscular Hemoglobin 30.8 pg (27.0-31.0); Mean Corpuscular Volume 93.4 fL (78.0-98.0); Mean Platelet Volume 8.5 fL (7.4-10.4); Platelet Count 146 thou/uL (130-400); Red Blood Cell (RBC) Count 3.88 mill/uL (4.70-6.10); White Blood Cell (WBC) Count 11.3 thou/uL (4.8-10.8)
[2018-11-07 05:58] LABS: Anion Gap 11 mmol/L (10-20); BUN (Urea Nitrogen) 17 mg/dL (8.4-25.7); Calc. Creatinine Clearance 141 mL/min (70-130); Calcium 7.9 mg/dL (7.8-10.44); Carbon Dioxide 22 mmol/L (23-31); Chloride 108 mmol/L (98-107); Estimated GFR-MDRD Greater than 90; Glucose 119 mg/dL (80-115); Potassium 4.2 mmol/L (3.5-5.1); Sodium 137 mmol/L (136-145)
[2018-11-07] MEDS ORDERED: Lactated Ringer's 1,000 ML IV SCH (06:22)
[2018-11-07] MEDS: Ibuprofen 600 MG TAB PO SCH ×3 (06:39→18:08)
--- NOTE | 2018-11-07 08:05 | RAD ---
CHEST ONE VIEW: HISTORY: Open heart surgery. COMPARISON: Radiograph from the prior day. FINDINGS: The patient has been extubated. The right subclavian central venous catheter is similar. The left t horacostomy drain is similar. No pneumothorax. IMPRESSION: Interval extubation without complication. POS: [facility]
--- NOTE | 2018-11-07 08:26 | PRG ---
DATE OF SERVICE: 11/07/2018 SUBJECTIVE: The patient is in good spirits, postop day #1, status post coronary artery bypass grafting x3 by Dr. Harrington. He is very thankful for his treatment thus far. OBJECTIVE: VITAL SIGNS: Temperature 98.3, O2 saturation 95%, pulse 105, and blood pressure 113/78. HEART: Regular rate and rhythm. LUNGS: Clear. ABDOMEN: Soft. EXTREMITIES: With no edema. LABORATORY DATA: White count 11.3, H and H of 12 and 36. Sodium 137, potassium 4.2, creatinine 0.79, BUN 17, and blood sugar 119 and 115. ASSESSMENT: 1. Postoperative day #1, status post coronary artery bypass grafting x3. Chest tube still in place. 2. Non-ST elevation myocardial infarction. 3. Coronary artery disease. 4. Cigar smoker. 5. Hyperlipidemia. 6. Uncontrolled blood pressure. PLAN: 1. Continue routine postop care. 2. We will discuss tobacco cessation. 3. We will continue to follow along with team. Job ID: [id number]
[2018-11-07] MEDS ORDERED: Aspirin 325 MG TAB PO SCH (09:00)
[2018-11-07] MEDS: Polyethylene Glycol 3350 17 GM Packet PO SCH (09:50)
--- NOTE | 2018-11-07 10:05 | OP ---
DATE OF PROCEDURE: 11/06/2018 PREOPERATIVE DIAGNOSIS: Coronary artery disease. PROCEDURE PERFORMED: Coronary artery bypass graft x3, left internal mammary artery good quality to a 2 to 2.5 mm left anterior descending artery. Saphenous vein somewhat large to a 1.5 mm diagonal, 1.25 mm mid posterior descending artery. M[employer]ED [employer] INSPECTOR: Cory Huff MD TRANSFUSION: None. DESCRIPTION OF PROCEDURE: After adequate anesthesia had been obtained, the patient was prepped and draped, and Dr. Huff did an endovascular vein harvest of the left greater saphenous vein while I performed a median sternotomy pack. The right pleura was entered in one small area and the left pleura was entered in a small area while harvesting the SIGALA. The patient was heparinized. The SIGALA divided distally and passed posterior to the thymus gland. Following aortic and right atrial cannulation, cardiopulmonary bypass was instituted with good ACT level up to about 600. Following inspection of the vessels for grafting, cross-clamp was applied and 1200 mL of cold blood cardioplegia was given through the aortic root. Following this, PDA, diagonal, and LAD were opened and end-to-side anastomosis was completed with each of these grafts. Following completion of this, the cross-clamp was removed. The patient was defibrillated on one occasion. Two proximal anastomoses were performed on the aortic root and marked with rings. Following completion of this, the patient was weaned from cardiopulmonary bypass and the grafts lie nicely in the pericardium. Cannulas were removed and secured with Prolene suture while protamine was given systemically. Following completion of this, proximal and distal suture lines were inspected. The patient's sternum was then reapproximated over mediastinal and bilateral pleural drains using #7 interrupted wire. Vancomycin paste was used on the sternal edges as was platelet rich blood and platelet poor plasma. Subcutaneous tissue and skin were closed in layers, and the patient is to be taken to the ICU in guarded condition. Job ID: [id number]
--- NOTE | 2018-11-07 18:33 | PDOC.CTH ---
Cardiology Progress Note - Subjective He had CABG yesterday. he is doing well. Only complaint is chest pain from surgery. - Objective Vital Signs Temp Pulse Ox 11/07/18 16:00 98.5 F 11/07/18 12:00 98.1 F 11/07/18 08:00 97.7 F 95 11/07/18 07:43 95 Weight 228 lb 6.382 oz 11/06/18 11/07/18 11/08/18 06:59 06:59 06:59 Intake Total 2962 1772 Output Total 1065 584 Balance 1897 1188 - Physical Examination General/Neuro: alert & oriented x3, NAD Neck: no JVD present Lungs: CTA, unlabored respirations Heart: RRR Abdomen: NT/ND Extremities: + edema B (1+) - Telemetry Telemetry Rhythm: NSR - Labs Result Diagrams: 11/07/18 Unknown 11/07/18 03:30 Troponin/CKMB Troponin I 2.463 ng/mL (< 0.028) H* 11/05/18 15:54 - Assessment/Plan 1. NSTEMI 2. Multivessel CAD. 3. S/P CABG x 3 SIGALA to LAD, SVG to Diag, SVG to RPDA PLAN: - Continue post op care. - ASA/Statin for life. - BB and ACEI if BP allows, currently borderline low. - PT as tolerated.
[2018-11-07] MEDS: Atorvastatin Calcium 40 MG TAB PO SCH (20:19)
--- NOTE | 2018-11-07 22:57 | EKG ---
Test Reason : Blood Pressure : / mmHG Vent. Rate : 067 BPM Atrial Rate : 067 BPM P-R Int : 148 ms QRS Dur : 108 ms QT Int : 526 ms P-R-T Axes : 042 -06 085 degrees QTc Int : 555 ms Normal sinus rhythm Prolonged QT Abnormal ECG When compared with ECG of 05-NOV-2018 13:57, ST now depressed in Anterior leads T wave inversion more evident in Anterior leads QT has lengthened Confirmed by Kade CALDERON ([id number]) on 11/07/2018 10:57:17 PM Referred By: BENNY Confirmed By:Kade CALDERON
[2018-11-08] MEDS: HYDROcodone/Acetaminophen 5/325 mg Tablet PO PRN ×3 (00:11→20:22)
[2018-11-08] MEDS: Ibuprofen 600 MG TAB PO SCH ×4 (00:11→20:24)
[2018-11-08 04:57] LABS: Anion Gap 7 mmol/L (10-20); BUN (Urea Nitrogen) 16 mg/dL (8.4-25.7); Calc. Creatinine Clearance 130 mL/min (70-130); Calcium 7.9 mg/dL (7.8-10.44); Carbon Dioxide 27 mmol/L (23-31); Chloride 103 mmol/L (98-107); Estimated GFR-MDRD Greater than 90; Glucose 108 mg/dL (80-115); Potassium 3.7 mmol/L (3.5-5.1); Sodium 133 mmol/L (136-145)
[2018-11-08 05:00] LABS: #Neutrophils 8.3 thou/uL (1.40-6.50); %Basophils 0.3 % (0.0-1.0); %Eosinophils 0.5 % (0.0-10.0); %Lymphocytes 9.3 % (21.0-51.0); %Monocytes 9.9 % (0.0-10.0); Hemoglobin 11.3 g/dL (14.0-18.0); Mean Corpuscular HGB CONC 34.4 g/dL (32.0-36.0); Mean Corpuscular Hemoglobin 32.6 pg (27.0-31.0); Mean Corpuscular Volume 94.8 fL (78.0-98.0); Mean Platelet Volume 8.7 fL (7.4-10.4); Platelet Count 113 thou/uL (130-400); Platelet Morphology Comment Appears Decreased; RBC Distribution Width 12.2 % (11.5-14.5); Red Blood Cell (RBC) Count 3.45 mill/uL (4.70-6.10); White Blood Cell (WBC) Count 10.3 thou/uL (4.8-10.8)
[2018-11-08] MEDS ORDERED: Mag-Al 1200 mg/1200 mg/30 ML UDCUP PO PRN (07:18)
[2018-11-08] MEDS ORDERED: Bisacodyl 5 MG TAB PO PRN (07:18)
[2018-11-08] MEDS ORDERED: Acetaminophen 325 MG TAB PO PRN (07:18)
[2018-11-08] MEDS ORDERED: Nitroglycerin 0.4 MG TAB (25 Tab Bottle) SL PRN (07:18)
[2018-11-08] MEDS ORDERED: Ondansetron PF 4 MG/2 ML Vial IVP PRN (07:18)
[2018-11-08] MEDS ORDERED: Bisacodyl 10 MG SUPP PR PRN (07:18)
[2018-11-08] MEDS: Polyethylene Glycol 3350 17 GM Packet PO SCH (08:13)
--- NOTE | 2018-11-08 08:26 | RAD ---
AP CHEST: HISTORY: Postop sternotomy. COMPARISON: 11/07/2018 FINDINGS: Cardiomegaly with postop sternotomy change. Central line appears adequately positioned. Vascular ma rkings are upper normal. The lungs appear otherwise clear. No evidence of acute interval change. POS: [facility]
[2018-11-08] MEDS: Potassium Chloride 10 MEQ TAB PO SCH (08:30)
[2018-11-08] MEDS: Aspirin 325 mg Enteric Coated Tablet PO SCH (08:30)
[2018-11-08] MEDS: Furosemide 40 MG TAB PO SCH (08:31)
[2018-11-08] MEDS: Metoprolol Tartrate 25 MG TAB PO SCH ×2 (08:31→20:20)
--- NOTE | 2018-11-08 09:01 | PRG ---
DATE OF SERVICE: 11/08/2018 SUBJECTIVE: The patient is doing well. Ambulating. Tolerating a regular diet. No complaints of chest pain. OBJECTIVE: VITAL SIGNS: Blood pressure 100/60, pulse ox 95%, heart rate 90, and afebrile. HEART: Regular rate and rhythm. LUNGS: Clear. ABDOMEN: Soft. EXTREMITIES: With no edema. LABORATORY DATA: White count 10.3, H and H of 11 and 32. Sodium 133, potassium 3.7, creatinine 0.85, and BUN 16. ASSESSMENT: 1. Postop day #2, status post coronary artery bypass grafting x3. 2. ST elevation myocardial infarction. 3. Coronary artery disease. 4. Cigar smoker. 5. Hyperlipidemia. 6. Uncontrolled blood pressure. PLAN: 1. Continue routine postop care. 2. Discussed tobacco cessation. 3. Statins, plus or minus SUSIE inhibitor, and beta-lashon. Job ID: [id number]
[2018-11-08] MEDS: Atorvastatin Calcium 40 MG TAB PO SCH (20:20)
[2018-11-09] MEDS: Ibuprofen 600 MG TAB PO SCH ×3 (00:05→16:00)
[2018-11-09] MEDS ORDERED: Sodium Chloride 0.9% 10 ML ONE ×2 (08:53→20:13)
[2018-11-09] MEDS: Potassium Chloride 10 MEQ TAB PO SCH (09:16)
[2018-11-09] MEDS: Metoprolol Tartrate 25 MG TAB PO SCH (09:17)
[2018-11-09] MEDS: Aspirin 325 mg Enteric Coated Tablet PO SCH (09:17)
[2018-11-09] MEDS: Furosemide 40 MG TAB PO SCH (09:17)
[2018-11-09] MEDS: Polyethylene Glycol 3350 17 GM Packet PO SCH (09:17)
[2018-11-09] MEDS: HYDROcodone/Acetaminophen 5/325 mg Tablet PO PRN ×2 (09:24→20:24)
--- NOTE | 2018-11-09 10:06 | PRG ---
DATE OF SERVICE: 11/09/2018 SUBJECTIVE: The patient is doing well. Minimal complaints of chest wall pain from surgery. He is now postop day #3, status post CABG x3. OBJECTIVE: VITAL SIGNS: Temperature 98.4, pulse 99, respirations 18, pulse ox 96%, and blood pressure 100/58. HEART: Regular rate and rhythm. LUNGS: Clear. ABDOMEN: Soft. EXTREMITIES: With no edema. LABORATORY DATA: None. ASSESSMENT: 1. Postoperative day #3, status post coronary artery bypass grafting x3. 2. Non-ST elevation myocardial infarction. 3. Coronary artery disease. 4. Cigar smoker. 5. Hyperlipidemia. PLAN: 1. Continue postop care. 2. Getting closer to discharge. 3. Tobacco cessation. 4. Statin for life. Job ID: [id number]
--- NOTE | 2018-11-09 13:09 | PDOC.CTH ---
Cardiology Progress Note - Subjective Doing much better. Walking with PT and his without issues. - Objective Vital Signs Temp Pulse Pulse Pulse Resp BP BP 11/09/18 09:50 105 H 104 H 138/81 121/71 11/09/18 08:00 99.6 F 112 H 18 11/09/18 04:00 98.4 F 99 18 BP Pulse Ox 11/09/18 09:50 11/09/18 08:00 139/79 95 11/09/18 04:00 100/58 L 96 Weight 225 lb 14.4 oz 11/08/18 11/09/18 11/10/18 06:59 06:59 06:59 Intake Total 2072 3100 Output Total 1369 1525 Balance 703 1575 - Physical Examination General/Neuro: alert & oriented x3, NAD Neck: no JVD present Lungs: CTA, unlabored respirations Heart: RRR Abdomen: NT/ND Extremities: + edema B (trace) - Telemetry Telemetry Rhythm: NSR - Labs Result Diagrams: 11/08/18 04:20 11/08/18 04:20 Troponin/CKMB Troponin I 2.463 ng/mL (< 0.028) H* 11/05/18 15:54 - Assessment/Plan 1. NSTEMI 2. Multivessel CAD. 3. S/P CABG x 3 SIGALA to LAD, SVG to Diag, SVG to RPDA PLAN: - ASA/Statin for life. - BB only at current dose. NO ACEI for now due to BP. - Increase PT as tolerated.
[2018-11-09] MEDS: Atorvastatin Calcium 40 MG TAB PO SCH (20:23)
[2018-11-09] MEDS ORDERED: Metoprolol Tartrate 25 MG TAB PO SCH (21:00)
[2018-11-10] MEDS: HYDROcodone/Acetaminophen 5/325 mg Tablet PO PRN ×2 (03:48→16:32)
--- NOTE | 2018-11-10 07:57 | PRG ---
DATE OF SERVICE: 11/10/2018 SUBJECTIVE: The patient is doing well. Has mild cough. Minimal chest wall pain. Postoperative day #4 status post CABG x3. OBJECTIVE: VITAL SIGNS: Temperature 98.6, pulse 93, respirations 18, pulse oximetry 95% and blood pressure 115/74. HEART: Regular rate and Rhythm. LUNGS: Clear. ABDOMEN: Soft. EXTREMITIES: With no edema. LABORATORY DATA: None. ASSESSMENT: 1. Postoperative day #4 status post coronary artery bypass graft x3. 2. Non ST elevation myocardial infarction. 3. Coronary artery disease. 4. Cigar smoker. 5. Hyperlipidemia. PLAN: 1. To be discharged in the a.m. 2. Discharge med which include aspirin 325 p.o. daily, metoprolol 25 one p.o. b.i.d., and Lipitor 40 1 p.o. daily. 3. The patient is to follow up next week in the office. We will also call out pain medications to his pharmacy. Job ID: [id number]
[2018-11-10] MEDS: Aspirin 325 mg Enteric Coated Tablet PO SCH (08:57)
[2018-11-10] MEDS: Metoprolol Tartrate 25 MG TAB PO SCH ×2 (08:57→20:25)
[2018-11-10] MEDS: Polyethylene Glycol 3350 17 GM Packet PO SCH (08:58)
--- NOTE | 2018-11-10 14:47 | PDOC.CTH ---
Cardiology Progress Note - Subjective He is dong well. Still no BM but passing gas. No bloating. No other issues. - Objective Vital Signs Temp Pulse Pulse Pulse Resp BP BP 11/10/18 12:00 98.3 F 93 18 11/10/18 09:34 95 91 140/86 136/87 11/10/18 07:27 98.6 F 93 18 11/10/18 04:00 99.9 F H 103 H 16 BP BP Pulse Ox Pulse Ox Pulse Ox 11/10/18 12:00 169/96 H 97 11/10/18 09:34 99 97 11/10/18 07:27 115/74 95 11/10/18 04:00 122/59 L 93 L Weight 219 lb 9.6 oz 11/09/18 11/10/18 11/11/18 06:59 06:59 06:59 Intake Total 3100 1365 Output Total 1525 2225 Balance 1575 -860 - Physical Examination General/Neuro: alert & oriented x3, NAD Neck: no JVD present Lungs: CTA, unlabored respirations Heart: RRR Abdomen: NT/ND Extremities: + edema B (trace) - Telemetry Telemetry Rhythm: NSR - Labs Result Diagrams: 11/08/18 04:20 11/08/18 04:20 Troponin/CKMB Troponin I 2.463 ng/mL (< 0.028) H* 11/05/18 15:54 - Assessment/Plan 1. NSTEMI 2. Multivessel CAD. 3. S/P CABG x 3 SIGALA to LAD, SVG to Diag, SVG to RPDA 4. HTN PLAN: - ASA/Statin for life. - BB only at current dose. - Will start low dose ACEI today. - Increase PT as tolerated. - May discharge home any time from cardiac perspective. - Follow up in the office in 3-4 weeks.
[2018-11-10] MEDS: Atorvastatin Calcium 40 MG TAB PO SCH (20:24)
[2018-11-11] MEDS ORDERED: Lisinopril 2.5 MG TAB PO SCH (09:00)
[2018-11-11] MEDS: Aspirin 325 mg Enteric Coated Tablet PO SCH (09:41)
[2018-11-11] MEDS: Metoprolol Tartrate 25 MG TAB PO SCH (09:41)
[2018-11-11] MEDS: Polyethylene Glycol 3350 17 GM Packet PO SCH (09:41)
[2018-11-11 12:45] VITALS: TEMP 98.5
[2018-11-11 12:51] VITALS: BP 139/89
--- NOTE | 2018-11-12 00:40 | DIS ---
DATE OF ADMISSION: 11/05/2018 DATE OF DISCHARGE: 11/11/2018 ADMITTING DIAGNOSES: Chest pain, non-ST elevation myocardial infarction, uncontrolled blood pressure, and hyperlipidemia. CONSULTATIONS: Dr. Coffey in Cardiology and Dr. Harrington in CV Surgery. PROCEDURES: He had a 3-vessel bypass performed on 11/06, by Dr. Harrington. Three vessels bypassed, the left internal mammary to the left anterior descending artery, saphenous vein to the diagonal, and saphenous vein to the posterior descending. HOSPITAL COURSE: The patient is a 63-year-old male, patient Dr. Charbel Rider, who came in with chest pain, worked up and found to have a non-STEMI, admitted, had a cardiac bypass. Has an essentially uneventful postoperative course, being discharged to home on 325 aspirin, Lipitor 40 mg daily, lisinopril 5 mg daily, metoprolol I believe that is 25 mg twice a day. His white count on the 11/08, was 10.3, H and H were 11 and 32 respectively, platelet count of 113. His renal function with GFR is greater than 90 with a creatinine of 0.85. DISCHARGE PLAN: Discharge to home. Continue these medications and to follow up with Dr. Rider in one week, follow up with Dr. Coffey in 3-4 weeks and also follow up with Dr. Harrington in 3-4 weeks. The patient had no complaints. No other questions. He will stick to a fairly low-carb, low-fat diet. Job ID: [id number]
[2018-11-13 15:17] LABS: Actual Bicarbonate (HCO3a) 23.7 mEq/L (22-28); Analyzer IN Cardio OR; Base Excess (BEa) -1.1 mEq/L (-2.0 to +3.0); Calcium, Ionized 1.13 mmol/L (1.12-1.30); Carboxyhemoglobin (COHb) 1.2 gm% (0.0-3.0); Hemoglobin (Hb) 15.3 g/dL (14.0-18.0); O2 Tension (PaO2) 447.4 mmHg (> 80.0); Potassium - ABG Lab 4.11 mmol/L (3.70-5.30); pH, Arterial 7.39 (7.35-7.45)
[2018-11-13 15:17] LABS: Analyzer IN Cardio OR; Base Excess (BEa) -3.5 mEq/L (-2.0 to +3.0); CO2 Tension 47.2 mmHg (35.0-45.0); Calcium, Ionized 1.06 mmol/L (1.12-1.30); Carboxyhemoglobin (COHb) 0.7 gm% (0.0-3.0); Hemoglobin (Hb) 12.7 g/dL (14.0-18.0); O2 Tension (PaO2) 487.2 mmHg (> 80.0); Potassium - ABG Lab 4.23 mmol/L (3.70-5.30); pH, Arterial 7.31 (7.35-7.45)
[2018-11-13 15:17] LABS: Actual Bicarbonate (HCO3v) 26 mEq/L (22-28); Analyzer IN Cardio OR; Base Excess -0.6 mEq/L (-2.0 to +3.0); Calcium, Ionized 1.01 mmol/L (1.16-1.32); Chloride (ABG LAB) 103 mmol/L (98-106); Hemoglobin (Hb) 12.4 g/dL (13.1-17.2); Potassium - ABG Lab 4.64 mmol/L (3.70-5.30); Sodium 134.9 mmol/L (133-146); pH (venous) 7.34 (7.32-7.43)
[2018-11-13 15:18] LABS: Actual Bicarbonate (HCO3a) 26.1 mEq/L (22-28); Analyzer IN Cardio OR; Base Excess (BEa) -0.3 mEq/L (-2.0 to +3.0); CO2 Tension 50.1 mmHg (35.0-45.0); Calcium, Ionized 1.23 mmol/L (1.12-1.30); Carboxyhemoglobin (COHb) 0.6 gm% (0.0-3.0); Hemoglobin (Hb) 12.3 g/dL (14.0-18.0); O2 Tension (PaO2) 434.6 mmHg (> 80.0); pH, Arterial 7.33 (7.35-7.45)
[2018-11-13 15:18] LABS: Actual Bicarbonate (HCO3a) 21.8 mEq/L (22-28); Analyzer IN Cardio OR; CO2 Tension 34.2 mmHg (35.0-45.0); Calcium, Ionized 1.09 mmol/L (1.12-1.30); Carboxyhemoglobin (COHb) 0.6 gm% (0.0-3.0); Hemoglobin (Hb) 12.1 g/dL (14.0-18.0); O2 Tension (PaO2) 379.4 mmHg (> 80.0); Potassium - ABG Lab 4.25 mmol/L (3.70-5.30); pH, Arterial 7.42 (7.35-7.45)
[2018-11-13 15:18] LABS: Actual Bicarbonate (HCO3a) 22.1 mEq/L (22-28); Analyzer IN Cardio OR; Base Excess (BEa) -2.6 mEq/L (-2.0 to +3.0); CO2 Tension 38.1 mmHg (35.0-45.0); Calcium, Ionized 1.07 mmol/L (1.12-1.30); Carboxyhemoglobin (COHb) 0.7 gm% (0.0-3.0); O2 Tension (PaO2) 405.6 mmHg (> 80.0); Potassium - ABG Lab 4.06 mmol/L (3.70-5.30); pH, Arterial 7.38 (7.35-7.45)
[2018-11-13 15:33] LABS: Puncture Site ALINE
[2018-11-13 15:34] LABS: Puncture Site ALINE
[2018-11-13 15:34] LABS: Puncture Site ALINE
[2018-11-13 15:35] LABS: Puncture Site ALINE
[2018-11-13 15:35] LABS: Puncture Site ALINE
== END 2018-11-11 15:00 | disposition home or self-care (01) | DRG 234 ==
LOC: 2SW 12:27 → OBSVTOIN 12:27 → CCU 11-06 12:59 → 2NO 11-08 16:50
PROVIDERS: ADMIT Family Medicine; ATTEND Family Medicine
PROC: 02100Z9 Bypass Coronary Artery, One Artery from Left Internal Mammary, Open Approach (ICD-10-PCS; principal; 2018-11-06)
PROC: 4A023N7 Measurement of Cardiac Sampling and Pressure, Left Heart, Percutaneous Approach (ICD-10-PCS; 2018-11-06)
PROC: 021109W Bypass Coronary Artery, Two Arteries from Aorta with Autologous Venous Tissue, Open Approach (ICD-10-PCS; 2018-11-06)
PROC: 5A1221Z Performance of Cardiac Output, Continuous (ICD-10-PCS; 2018-11-06)
PROC: B24BZZ4 Ultrasonography of Heart with Aorta, Transesophageal (ICD-10-PCS; 2018-11-06)
PROC: B215YZZ Fluoroscopy of Left Heart using Other Contrast (ICD-10-PCS; 2018-11-06)
DX: I21.4 Non-ST elevation (NSTEMI) myocardial infarction (principal); E78.5 Hyperlipidemia, unspecified; F17.210 Nicotine dependence, cigarettes, uncomplicated; I10 Essential (primary) hypertension; I25.10 Atherosclerotic heart disease of native coronary artery without angina pectoris; Z85.46 Personal history of malignant neoplasm of prostate
CPT/HCPCS: 36415; 36416; 36430; 71045; 76705; 80048; 80053; 80061; 82805; 84484; 85014; 85018; 85025; 85610; 85730; 86850; 86900; 86901; 93005; 93010; 93306; 93458; 93798; 94002; 94760; 99152; 99153; C1769; J0690; J1642; J1644; J1650; J1885; J2001; J2150; J2250; J2270; J2704; J2720; J3010; J3475; J3480; J3490; J7050; P9045; Q9967; S0028

== ENCOUNTER 2022-08-09 07:27 | Outpatient (CLI) | payer MEDICARE, OTHER ==
[2022-08-09] MEDS ORDERED: Iopamidol 370 76% 100 ML VIAL ONE (08:56)
== END 2022-08-09 07:28 | disposition home or self-care (01) ==
LOC: BICCT 07:27
PROVIDERS: ATTEND Internal Medicine Gastroenterology
DX: C18.9 Malignant neoplasm of colon, unspecified (principal)
CPT/HCPCS: 74177; 82565

== ENCOUNTER 2022-10-20 14:14 | Outpatient (CLI) | payer MEDICARE, OTHER ==
[2022-10-20 20:21] LABS: Hemoglobin A1c 4.7 % (4.0-6.0)
== END 2022-10-20 14:15 | disposition home or self-care (01) ==
LOC: LABBT 14:14
PROVIDERS: ATTEND Surgery
DX: Z01.812 Encounter for preprocedural laboratory examination (principal); C18.7 Malignant neoplasm of sigmoid colon
CPT/HCPCS: 83036

== ENCOUNTER 2022-10-20 14:30 | Inpatient (IN) | payer MEDICARE, OTHER ==
[2022-10-20 15:00] VITALS: BMI 29.8
[2022-10-27] MEDS ORDERED: Midazolam HCl 2 mg/2 ml Vial ONE ×2 (08:40→08:46)
[2022-10-27] MEDS ORDERED: Bupivacaine PF 0.5% 30 ML VIAL ONE ×2 (08:40→08:45)
[2022-10-27] MEDS ORDERED: fentaNYL 50 mcg/mL 1 mL Vial ONE (08:40)
[2022-10-27] MEDS ORDERED: HYDROmorphone 2 MG/ML VIAL ONE (10:42)
[2022-10-27] MEDS ORDERED: Dexamethasone 4 mg/ml Vial ONE (10:43)
[2022-10-27] MEDS ORDERED: Ondansetron PF 4 MG/2 ML Vial ONE (10:43)
[2022-10-27] MEDS ORDERED: SUGAMMADEX SODIUM 200 MG/2 ML VIAL ONE (10:43)
[2022-10-27] MEDS ORDERED: Esmolol 100 MG/10 ML VIAL ONE ×2 (10:43→11:01)
[2022-10-27] MEDS ORDERED: Propofol 500 MG/50 ML VIAL ONE (10:43)
[2022-10-27] MEDS ORDERED: Sodium Chloride 0.9% 100 ML ONE (10:50)
[2022-10-27] MEDS ORDERED: cefOXitin 2 GM VIAL ONE ×2 (10:50→13:06)
[2022-10-27] MEDS ORDERED: Lidocaine 1% PF 5 ML VIAL ONE (11:01)
[2022-10-27] MEDS ORDERED: Labetalol HCl 100 MG/20 ML VIAL ONE (11:01)
[2022-10-27] MEDS ORDERED: Dexamethasone 20 MG/5 ML VIAL ONE (11:01)
[2022-10-27] MEDS ORDERED: Vecuronium 10 MG VIAL ONE (11:01)
[2022-10-27] MEDS ORDERED: PROPOFOL 200 MG/20 ML VIAL ONE (11:01)
[2022-10-27] MEDS ORDERED: Bupivacaine HCl 0.5%/Epinephrine 1:200,000/PF 30 ml Vial ONE (11:34)
[2022-10-27] MEDS ORDERED: hydrALAZINE 20 MG/ML VIAL SLOW IVP PRN (13:50)
[2022-10-27] MEDS ORDERED: Ondansetron PF 4 MG/2 ML Vial IVP PRN ×2 (13:50→14:28)
[2022-10-27] MEDS ORDERED: Promethazine HCl 25 MG/ML VIAL IM PRN ×2 (13:50→14:28)
[2022-10-27] MEDS ORDERED: Ipratropium/Albuterol 3 ML NEB NEB PRN (13:50)
[2022-10-27] MEDS ORDERED: Zolpidem Tartrate 5 MG TAB PO PRN (14:28)
[2022-10-27] MEDS ORDERED: diphenhydrAMINE 50 MG/ML VIAL IVP PRN (14:28)
[2022-10-27] MEDS ORDERED: Naloxone HCl 0.4 mg/ml Vial IV PRN (14:28)
[2022-10-27] MEDS ORDERED: diphenhydrAMINE 25 MG CAP PO PRN (14:28)
[2022-10-27] MEDS ORDERED: diphenhydrAMINE 50 MG/ML VIAL IM PRN (14:28)
[2022-10-27] MEDS ORDERED: FENTANYL 500 MCG/10 ML VIAL 2,000 MCG in Sodium Chloride 0.9% 60 ML IV PRN (14:28)
[2022-10-27] MEDS: Sodium Chloride 0.9% 1,000 ML IV SCH ×2 (14:29→23:46)
[2022-10-27] MEDS ORDERED: Communication Order-Pharmacy FS SCH (14:30)
[2022-10-27] MEDS: Ketorolac Tromethamine 30 MG/ML VIAL IVP SCH ×2 (17:56→23:46)
[2022-10-27] MEDS: Famotidine/PF 20 mg/2ml Vial SLOW IVP SCH (20:19)
[2022-10-27] MEDS: Famotidine 20 MG TAB PO SCH (20:19)
[2022-10-27] MEDS: cefOXitin 2 GM in Sodium Chloride 0.9% 100 ML IVPB SCH (20:20)
[2022-10-28] MEDS: cefOXitin 2 GM in Sodium Chloride 0.9% 100 ML IVPB SCH (05:49)
[2022-10-28] MEDS: Ketorolac Tromethamine 30 MG/ML VIAL IVP SCH ×4 (05:49→23:51)
[2022-10-28 06:20] LABS: #Monocytes 1.4 thou/uL (0.11-0.59); %Basophils 0.2 % (0.0-1.0); %Monocytes 10.3 % (0.0-10.0); %Neutrophils 83.2 % (42.0-75.0); Hemoglobin 12.9 g/dL (14.0-18.0); Mean Corpuscular HGB CONC 33.9 g/dL (32.0-36.0); Mean Corpuscular Hemoglobin 33.7 pg (27.0-31.0); Mean Corpuscular Volume 99.2 fl (78.0-98.0); Mean Platelet Volume 11.8 fL (7.4-10.4); Platelet Count 127 10x3/uL (130-400); RBC Distribution Width 13.2 % (11.5-14.5); Red Blood Cell (RBC) Count 3.83 mill/uL (4.70-6.10); White Blood Cell (WBC) Count 13.2 10x3/uL (4.8-10.8)
[2022-10-28 06:39] LABS: Anion Gap 13 mmol/L (10-20); BUN (Urea Nitrogen) 23 mg/dL (8.4-25.7); Calc. Creatinine Clearance 116 mL/min (70-130); Calcium 8.6 mg/dL (7.8-10.44); Carbon Dioxide 22 mmol/L (23-31); Chloride 110 mmol/L (98-107); Estimated GFR 95; Glucose 110 mg/dL (80-115); Sodium 141 mmol/L (136-145)
[2022-10-28] MEDS: Famotidine/PF 20 mg/2ml Vial SLOW IVP SCH ×2 (08:56→20:23)
[2022-10-28] MEDS: Sodium Chloride 0.9% 1,000 ML IV SCH ×3 (08:56→23:51)
[2022-10-28] MEDS: Famotidine 20 MG TAB PO SCH ×2 (08:59→20:24)
[2022-10-29] MEDS: Ketorolac Tromethamine 30 MG/ML VIAL IVP SCH ×4 (05:04→23:46)
[2022-10-29 05:28] LABS: #Eosinphils 0.1 thou/uL (0.0-0.7); #Monocytes 0.8 thou/uL (0.11-0.59); #Neutrophils 4.9 thou/uL (1.40-6.50); %Basophils 0.4 % (0.0-1.0); %Eosinophils 1.1 % (0.0-10.0); %Lymphocytes 15.9 % (21.0-51.0); %Monocytes 11.6 % (0.0-10.0); %Neutrophils 70.6 % (42.0-75.0); Hematocrit 33.7 % (42.0-52.0); Hemoglobin 11.4 g/dL (14.0-18.0); Mean Corpuscular HGB CONC 33.8 g/dL (32.0-36.0); Mean Corpuscular Hemoglobin 34.2 pg (27.0-31.0); Mean Corpuscular Volume 101.2 fl (78.0-98.0); Mean Platelet Volume 11.9 fL (7.4-10.4); RBC Distribution Width 12.9 % (11.5-14.5); Red Blood Cell (RBC) Count 3.33 mill/uL (4.70-6.10)
[2022-10-29 05:43] LABS: Platelet Count 97 10x3/uL (130-400)
[2022-10-29 05:53] LABS: Anion Gap 11 mmol/L (10-20); BUN (Urea Nitrogen) 17 mg/dL (8.4-25.7); Calc. Creatinine Clearance 126 mL/min (70-130); Calcium 8.1 mg/dL (7.8-10.44); Carbon Dioxide 23 mmol/L (23-31); Chloride 110 mmol/L (98-107); Estimated GFR 97; Glucose 84 mg/dL (80-115); Sodium 140 mmol/L (136-145)
[2022-10-29] MEDS ORDERED: HYDROcodone/Acetaminophen 10/325 mg Tablet PO PRN (07:55)
[2022-10-29] MEDS ORDERED: DC PCA Order Set 1 EACH FS SCH (07:55)
[2022-10-29] MEDS: Famotidine/PF 20 mg/2ml Vial SLOW IVP SCH (07:58)
[2022-10-29] MEDS: Famotidine 20 MG TAB PO SCH ×2 (09:13→20:40)
[2022-10-29] MEDS: Sodium Chloride 0.9% 1,000 ML IV SCH ×3 (09:13→23:53)
[2022-10-29] MEDS: HYDROcodone/Acetaminophen 10/325 mg Tablet PO PRN ×2 (16:23→20:41)
[2022-10-30] MEDS: Ketorolac Tromethamine 30 MG/ML VIAL IVP SCH (05:22)
[2022-10-30] MEDS ORDERED: traMADol HCl 50 MG TAB PO PRN (09:03)
[2022-10-30] MEDS ORDERED: Ibuprofen 600 MG TAB PO PRN (09:04)
[2022-10-30] MEDS: traMADol HCl 50 MG TAB PO PRN ×2 (10:48→19:01)
[2022-10-30] MEDS: Acetaminophen 325 MG TAB PO PRN ×2 (10:49→19:00)
[2022-10-30] MEDS: Famotidine 20 MG TAB PO SCH ×2 (10:49→19:53)
[2022-10-30] MEDS: Sodium Chloride 0.9% 1,000 ML IV SCH (11:25)
[2022-10-31] MEDS: Acetaminophen 325 MG TAB PO PRN ×2 (06:05→13:17)
[2022-10-31] MEDS: traMADol HCl 50 MG TAB PO PRN ×2 (06:05→13:17)
[2022-10-31] MEDS: Famotidine 20 MG TAB PO SCH (08:46)
[2022-10-31 12:15] VITALS: BP 148/79; TEMP 98.1
== END 2022-10-31 14:10 | disposition home or self-care (01) | DRG 331 ==
LOC: SURG A 10-27 07:37
PROVIDERS: ADMIT Surgery; ATTEND Surgery
PROC: 0DBN0ZZ Excision of Sigmoid Colon, Open Approach (ICD-10-PCS; principal; 2022-10-27)
PROC: 0DBP0ZZ Excision of Rectum, Open Approach (ICD-10-PCS; 2022-10-27)
PROC: 0DJD4ZZ Inspection of Lower Intestinal Tract, Percutaneous Endoscopic Approach (ICD-10-PCS; 2022-10-27)
PROC: 0DJD8ZZ Inspection of Lower Intestinal Tract, Via Natural or Artificial Opening Endoscopic (ICD-10-PCS; 2022-10-27)
DX: C19 Malignant neoplasm of rectosigmoid junction (principal); I10 Essential (primary) hypertension; M19.90 Unspecified osteoarthritis, unspecified site; M10.9 Gout, unspecified; D69.6 Thrombocytopenia, unspecified; Z53.31 Laparoscopic surgical procedure converted to open procedure; Z79.82 Long term (current) use of aspirin; Z79.899 Other long term (current) drug therapy
CPT/HCPCS: 36415; 36416; 80048; 85025; 88305; 88309; A4649; C1713; J0694; J1100; J1170; J1650; J1885; J2250; J2405; J2704; J3010; J3490; J7050; S0020; S0028

== ENCOUNTER 2022-11-16 12:54 | Outpatient (CLI) | payer MEDICARE, OTHER ==
[~2022-11-16 12:54] MED LIST: Iopamidol 370 76% 100 ML VIAL ONE
== END 2022-11-16 12:55 | disposition home or self-care (01) ==
LOC: BICCT 12:54
PROVIDERS: ATTEND Internal Medicine Hematology & Oncology
DX: C20 Malignant neoplasm of rectum (principal); D71 Functional disorders of polymorphonuclear neutrophils; R91.8 Other nonspecific abnormal finding of lung field
CPT/HCPCS: 71260

== ENCOUNTER 2022-12-08 11:30 | Outpatient (CLI) | payer OTHER | END 2022-12-08 11:31 | disposition home or self-care (01) | LOC: DTY/OP 11:30 | PROVIDERS: ATTEND Family Medicine | DX: I25.811 Atherosclerosis of native coronary artery of transplanted heart without angina pectoris (principal) | CPT/HCPCS: 97802 ==

== ENCOUNTER 2023-04-15 08:06 | Outpatient (CLI) | payer MEDICARE, OTHER | END 2023-04-15 08:07 | disposition home or self-care (01) | LOC: BICULT 08:06 | PROVIDERS: ATTEND Urology | DX: N45.2 Orchitis (principal); N50.3 Cyst of epididymis | CPT/HCPCS: 76870; 93976 ==

== ENCOUNTER 2023-04-28 07:11 | Outpatient (CLI) | payer MEDICARE, OTHER ==
[2023-04-28] MEDS ORDERED: Iopamidol 370 76% 100 ML VIAL ONE (14:25)
== END 2023-04-28 07:12 | disposition home or self-care (01) ==
LOC: BICCT 07:11
PROVIDERS: ATTEND Internal Medicine Hematology & Oncology
DX: C20 Malignant neoplasm of rectum (principal); R91.8 Other nonspecific abnormal finding of lung field; K59.00 Constipation, unspecified; Z98.890 Other specified postprocedural states
CPT/HCPCS: 71260; 74177; 80061; 81001; G0103; 36415; 80053; 84443; 85025; Q9967

== ENCOUNTER 2024-04-03 07:44 | Outpatient (CLI) | payer MEDICARE, OTHER ==
[2024-04-03] MEDS ORDERED: Iopamidol 370 76% 100 ML VIAL ONE (15:08)
== END 2024-04-03 07:45 | disposition home or self-care (01) ==
LOC: BICCT 07:44
PROVIDERS: ATTEND Internal Medicine Hematology & Oncology
DX: C20 Malignant neoplasm of rectum (principal); R91.8 Other nonspecific abnormal finding of lung field
CPT/HCPCS: 36415; 71260; 74177; 82565; Q9967